=== PATIENT | female | born 1985 | race American Indian/Alaskan Native ===

== ENCOUNTER 2016-11-11 00:07 | Inpatient (IN) | payer BC, MEDICAID ==
[2016-11-11] MEDS ORDERED: METHERGINE IM ONE ×2 (00:21→02:34)
[2016-11-11] MEDS ORDERED: ZOFRAN IV PRN (00:49)
[2016-11-11] MEDS ORDERED: TYLENOL PO PRN (00:49)
[2016-11-11] MEDS ORDERED: BENADRYL PO PRN (00:49)
[2016-11-11] MEDS ORDERED: MILK OF MAGNESIA PO PRN (00:49)
[2016-11-11] MEDS ORDERED: PHENERGAN PO PRN (00:49)
[2016-11-11] MEDS ORDERED: TUCKS PAD TP PRN (00:49)
[2016-11-11] MEDS ORDERED: PHENERGAN PR PRN (00:49)
[2016-11-11] MEDS ORDERED: LANSINOH TP PRN (00:49)
[2016-11-11] MEDS ORDERED: DULCOLAX PR PRN (00:49)
--- NOTE | 2016-11-11 00:59 | History and Physical Report ---
History of Present Illness Date of examination: 11/11/16 Date of admission: 11/11/16 00:19 Chief complaint: I'm in labor History of present illness: Patient is a who presents to L&D via ambulance in active labor. patient was full and pushing upon presentation. She was scheduled to go to [facility] for delivery and states that she sees Dr. Pacheco but no records were found at [facility]. Past History Past Medical History: no pertinent history Past Surgical History: no surgical history Social history: - Obstetrical History Expected Date of Delivery: 11/07/16 Actual Gestation: 40 Week(s) 4 Day(s) : 6 Para: 4 Number of Living Children: 4 Medications and Allergies Allergies Allergy/AdvReac Type Severity Reaction Status Date / Time Penicillins Allergy Rash Verified 02/15/14 10:32 Active Meds: Active Medications Acetaminophen (Tylenol) 650 mg PO Q4H PRN PRN Reason: Pain MILD(1-3)/Fever >100.5/LAMB Acetaminophen/Hydrocodone Bitart ([place] 5/325) 2 each PO Q6H PRN PRN Reason: Pain, Moderate (4-6) Bisacodyl (Dulcolax) 10 mg IA BID PRN PRN Reason: Constipation Diphenhydramine HCl (Benadryl) 25 mg PO Q6H PRN PRN Reason: Itching Docusate Sodium (Colace) 100 mg PO BID VANESSA Ibuprofen (Motrin) 600 mg PO Q6H VANESSA Magnesium Hydroxide (Milk Of Magnesia) 30 ml PO HS PRN PRN Reason: Constipation Multi-Ingredient Ointment (Lansinoh) 1 applic TP PRN PRN PRN Reason: Sore Nipples Multivitamins/Iron/Calcium ( Vitamin) 1 each PO QDAY VANESSA Ondansetron HCl (Zofran) 4 mg IV Q8H PRN PRN Reason: Nausea And Vomiting Promethazine HCl (Phenergan) 25 mg IA Q6H PRN PRN Reason: Nausea And Vomiting Promethazine HCl (Phenergan) 25 mg PO Q6H PRN PRN Reason: Nausea And Vomiting Sodium Chloride (Sodium Chloride Flush Syringe 10 Ml) 10 ml IV PRN NR Witch Vikki/Glycerin (Tucks Pad) 1 each TP PRN PRN PRN Reason: Hemorrhoid/cleansing/soothing Review of Systems All systems: negative Genitourinary: leakage of fluid, contractions - Vital Signs Vital signs: Vital Signs Pulse BP 89 130/60 11/11/16 00:18 11/11/16 00:18 Temp Pulse Resp BP Pulse Ox 97.4 F L 99 H 18 112/62 100 11/11/16 00:20 11/11/16 00:51 11/11/16 00:20 11/11/16 00:38 11/11/16 00:51 - Physical Exam Breasts: Cardiovascular: Regular rate, Normal S1, Normal S2 Lungs: Positive: Clear to auscultation, Normal air movement Abdomen: Positive: normal appearance, soft, normal bowel sounds. Negative: distention, tenderness Vulva: both: normal Vagina: Positive: normal moisture. Negative: discharge Cervix: Negative: lesion, discharge Uterus: Positive: normal size, normal contour Adnexa: both: normal Anus/Rectum: Positive: normal perianal skin, heme negative. Negative: rectal mass, hemorrhoids Extremities: Deep Tendon Reflex Grade: Normal +2 - Obstetrical Cervical Dilatation: 10 Cervical Effacement Percentage: 100 station: +2 Uterine Contraction Frequency (min): 3 Uterine Contraction Pattern: Regular Uterine Contraction Intensity: Strong/Firm Results All other labs normal. Assessment and Plan IUP at 40.4 in active labor. Admit and anticipate
[2016-11-11] MEDS ORDERED: SODIUM CHLORIDE FLUSH SYRINGE 10 ML IV PRN (01:00)
--- NOTE | 2016-11-11 01:04 | Procedure Note ---
OB Delivery Note - Delivery Date of Delivery: 11/11/16 Surgeon: MAHSA BERNAL Estimated blood loss: 300cc - Vaginal Delivery presentation: vertex Delivery position: OA Intrapartum events: precipitous labor- <3hr Delivery monitor: external FHT, external uterine Route of delivery: Delivery placenta: spontaneous Delivery cord: 3 umbilical vessels Episiotomy: none Delivery laceration: none Anesthesia: none Delivery comments: Viable male delivered precipitously over intact perineum. Cord clamped and cut. Placenta delivered spontaneously and intact with 3c. No lacerations. Patient tolerated procedure well. - Infant A at 1 minute: 8 at 5 minutes: 8 Gender: Male (7 pounds 6 ounces)
[2016-11-11] MEDS: MOTRIN PO SCH ×4 (01:36→23:54)
[2016-11-11] MEDS ORDERED: PITOCin/NS 20 UNIT/1000ML DRIP 20 UNITS/1,000 ML BAG IV SCH ×2 (02:00→02:51)
[2016-11-11 02:17] LABS: Hematocrit 33.1 % (30.3-42.9); Hemoglobin 10.9 gm/dl (10.1-14.3)
[2016-11-11] MEDS ORDERED: PITOCin/NS 30 UNIT/500ML 30 UNITS/500 ML BAG IV SCH (02:51)
[2016-11-11] MEDS ORDERED: LACTATED RINGERS 1,000 ML IV SCH (02:51)
[2016-11-11] MEDS ORDERED: BRETHINE SUB-Q PRN (02:51)
[2016-11-11] MEDS ORDERED: ePHEDrine SULFATE IV PRN (02:51)
[2016-11-11] MEDS ORDERED: XYLOCAINE 2% INFILTRATI ONE (02:51)
[2016-11-11] MEDS ORDERED: MINERAL OIL PO PRN (02:51)
[2016-11-11] MEDS ORDERED: BRETHINE IVP PRN (02:51)
[2016-11-11] MEDS ORDERED: PITOCin/NS 20 UNIT/1000ML DRIP 20,000 MILLIUNITS/1,000 ML BAG IV ONE (03:51)
[2016-11-11 06:31] LABS: Hematocrit 28.8 % (30.3-42.9); Hemoglobin 9.6 gm/dl (10.1-14.3); Mean Corpuscular HGB Conc 33 % (30-34); Mean Corpuscular Hemoglobin 28 pg (28-32); Mean Corpuscular Volume 84 fl (79-97); Platelet Count 177 K/mm3 (140-440); Red Blood Count 3.41 M/mm3 (3.65-5.03); Red Cell Distribution Width 18.5 % (13.2-15.2); White Blood Count 10.9 K/mm3 (4.5-11.0)
[2016-11-11] MEDS: COLACE PO SCH ×2 (18:49→21:41)
[2016-11-11] MEDS: NORCO 5/325 PO PRN ×2 (18:50→23:54)
[2016-11-11] MEDS: PRENATAL VITAMIN PO SCH (18:50)
[2016-11-12] MEDS: MOTRIN PO SCH ×4 (06:02→23:10)
[2016-11-12] MEDS: COLACE PO SCH ×2 (11:57→21:47)
[2016-11-12] MEDS: PRENATAL VITAMIN PO SCH (11:57)
[2016-11-12 18:59] LABS: HIV-1 RNA QN PCR <1.30 Log cps/mL (<1.30); HIV-1 RNA QN PCR <20 copies/mL (<20)
--- NOTE | 2016-11-13 00:14 | Progress Note ---
Assessment and Plan PPD 1 s/p precipitous . Doing well. Plan for discharge on 11/13 Subjective - Subjective Date of service: 11/13/16 Interval history: Patient is a who presents to L&D via ambulance in active labor. patient was full and pushing upon presentation. She was scheduled to go to [facility] for delivery and states that she sees Dr. Pacheco but no records were found at [facility]. Patient reports: appetite normal, voiding normally, pain well controlled, ambulating normally Mccleary: doing well Objective - Vital Signs Latest vital signs: Vital Signs Temp Pulse Resp BP 11/12/16 16:19 98.3 F 65 18 127/75 11/12/16 08:26 97.9 F 65 18 124/74 11/12/16 00:36 98.5 F 66 20 108/55 Intake and Output 11/12/16 11/12/16 11/13/16 14:59 22:59 06:59 Intake Total 840 Balance 840 Intake: Oral 840 Other: Total, Intake Amount 480 # Voids Void 1 - Exam Breasts: Present: deferred Cardiovascular: Present: Regular rate, Normal S1, Normal S2 Lungs: Present: Clear to auscultation, Normal air movement Abdomen: Present: normal appearance, soft, normal bowel sounds Uterus: Present: normal, firm, fundal height below umbilicus Extremities: Present: normal
--- NOTE | 2016-11-13 00:16 | Discharge Summary ---
Providers - Providers Date of Admission: 11/11/16 00:19 Date of discharge: 11/13/16 Attending physician: MAHSA BERNAL Primary care physician: MAHSA BERNAL Hospitalization Reason for admission: active labor Delivery: complications: none Discharge diagnosis: IUP at term delivered [place] baby: male Hospital course: unremarkable Condition at discharge: Good Disposition: DC-01 TO HOME OR SELFCARE Plan - Discharge Medications Prescriptions: HYDROcodone/APAP 5-325 [[place] 5/325] 1 each PO Q4HR PRN #20 tablet PRN Reason: Pain - Provider Discharge Summary Activity: routine, no sex for 6 weeks, no heavy lifting 4 weeks, no strenuous exercise Diet: routine Instructions: routine Additional instructions: [] Smoking cessation referral if applicable(refer to patient education folder for contact #) [] Refer to [facility] Booklet Call your doctor immediately for: * Fever > 100.5 * Heavy vaginal bleeding ( >1 pad per hour) * Severe persistent headache * Shortness of breath * Reddened, hot, painful area to leg or breast * Drainage or odor from incision. * Keep incision clean and dry at all times and follow doctor's instructions regarding bathing/showering - Follow up plan Follow up: MAHSA BERNAL MD [Primary Care Provider] - (Dr. Pacheco)
[2016-11-13] MEDS: MOTRIN PO SCH (05:59)
[2016-11-13 13:43] VITALS: BP 127/75
== END 2016-11-13 12:30 | disposition home or self-care (01) | DRG 775 ==
LOC: TRG 00:07 → LD 00:19 → OB 03:04
PROVIDERS: ADMIT Obstetrics & Gynecology; ATTEND Obstetrics & Gynecology
PROC: 10E0XZZ Delivery of Products of Conception, External Approach (ICD-10-PCS; principal; 2016-11-11)
DX: O62.3 Precipitate labor (principal); Z3A.40 40 weeks gestation of pregnancy; Z37.0 Single live birth; Z88.0 Allergy status to penicillin
CPT/HCPCS: 36415; 85014; 85018; 85027; 86850; 86900; 86901; 87536; 99211; A6250; G0463; J2210; J2590

== ENCOUNTER 2018-09-07 10:07 | Emergency (ER) | payer BC, MEDICAID ==
[2018-09-07] MEDS ORDERED: FUL-GLO OP ONE (13:42)
[2018-09-07] MEDS ORDERED: IBUPROFEN PO ONE (13:43)
[2018-09-07] MEDS ORDERED: BSS OU ONE (13:43)
--- NOTE | 2018-09-07 14:56 | Emergency Department Report ---
ED Eye Problem HPI - General Chief complaint: Eye Problems Stated complaint: R EYE PAIN/REDNESS/DRAINAGE Time Seen by Provider: 09/07/18 13:41 Source: patient Mode of arrival: Ambulatory Limitations: No Limitations - History of Present Illness Initial comments: 33-year-old -[place] female presents to the emergency room for right eye pain after her child fracture in her eye yesterday. Patient reports she does not wear contacts. Patient complains of pain irritation light sensitivity. Patient has no past medical history has a allergy to penicillin. chief complaint: eye pain, eye injury Onset/Timin -: days(s) Onset Description: sudden Location: right eye Place: home If Injury: direct trauma Eye Symptoms: redness, pain, photophobia Severity: moderate Severity scale (0 -10): 8 If Pain, Quality: sharp, burning, throbbing Consistency: constant Associated Symptoms: none Treatments Prior to Arrival: none - Related Data Patient Tetanus UTD: No Previous Rx's Medication Instructions Recorded Last Taken Type Erythromycin [Erythromycin Ophth 10 applic OP QID 10 Days #1 gram 09/07/18 Unknown Rx Oint] HYDROcodone/APAP 5-325 [[place] 1 each PO Q4HR PRN #10 tablet 09/07/18 Unknown Rx 5-325 mg TAB] Ibuprofen [Motrin 800 MG tab] 800 mg PO Q8HR PRN #30 tablet 09/07/18 Unknown Rx Allergies Allergy/AdvReac Type Severity Reaction Status Date / Time Penicillins Allergy Rash Verified 02/15/14 10:32 ED Review of Systems ROS: Stated complaint: R EYE PAIN/REDNESS/DRAINAGE Other details as noted in HPI Comment: All other systems reviewed and negative Eyes: eye pain ED Past Medical Hx - Past Medical History Previous Medical History?: Yes Hx Hypertension: No Hx Congestive Heart Failure: No Hx Diabetes: No Hx Deep Vein Thrombosis: No Hx Renal Disease: No Hx Sickle Cell Disease: No Hx Seizures: No Hx Asthma: No Hx COPD: No - Surgical History Past Surgical History?: Yes Additional Surgical History: carpal tunnel, right. partial thyroidectomy - Social History Smoking Status: Never Smoker Substance Use Type: None - Medications Home Medications: Home Medications Medication Instructions Recorded Confirmed Last Taken Type Erythromycin [Erythromycin Ophth 10 applic OP QID 10 Days #1 gram 09/07/18 Unknown Rx Oint] HYDROcodone/APAP 5-325 [[place] 1 each PO Q4HR PRN #10 tablet 09/07/18 Unknown Rx 5-325 mg TAB] Ibuprofen [Motrin 800 MG tab] 800 mg PO Q8HR PRN #30 tablet 09/07/18 Unknown Rx ED Physical Exam - General Limitations: No Limitations General appearance: alert, in no apparent distress - Head Head exam: Present: atraumatic, normocephalic - Expanded Eye Exam Expanded Eyelids: Normal Inspection: Right Pupils: Regular, Round: Right Sclera/Conjunctival: Normal Inspection: Right Visual acuity (R) = 20/: 30 Visual acuity (L) = 20/: 30 IOP measured with: other (fluorescein uptake to the right eye between 11 and 7 o'clock) - ENT ENT exam: Present: mucous membranes moist - Neck Neck exam: Present: normal inspection, full ROM - Neurological Exam Neurological exam: Present: alert, oriented X3 - Psychiatric Psychiatric exam: Present: normal affect, normal mood - Skin Skin exam: Present: warm, dry, intact, normal color. Absent: rash ED Course Vital Signs 09/07/18 10:20 Temperature 97.7 F Pulse Rate 76 Respiratory 16 Rate Blood Pressure 130/73 O2 Sat by Pulse 99 Oximetry ED Medical Decision Making - Medical Decision Making 33-year-old female comes in for right eye injury after child poked her in her eye. Fluorescein exam shows the patient has a linear vertical abrasion to her right cornea. Patient will be placed on erythromycin ointment ophthalmic. Also placed on [place] 5/325 and ibuprofen. Referral to several ophthalmologists with instructions that it is very important for her to follow up. Patient verbalized understanding Critical care attestation.: If time is entered above; I have spent that time in minutes in the direct care of this critically ill patient, excluding procedure time. ED Disposition Clinical Impression: Corneal abrasion, right Qualifiers: Encounter type: initial encounter Qualified Code(s): S05.01XA - Injury of conjunctiva and corneal abrasion without foreign body, right eye, initial encounter Disposition: TO HOME OR SELFCARE Is pt being admited?: No Does the pt Need Aspirin: No Condition: Stable Instructions: Corneal Abrasion (ED) Additional Instructions: Please use antibiotic ointment to right eye as prescribed. Take pain medication as needed. Do not operate heavy machinery while taking narcotic. It is very very importantly to follow up with an souvenir street vendor in the next 2-3 days. If you do not follow up with an souvenir street vendor states that she'll help the risks such as vision loss worsening of infection. I have listed several below for your convenience. Prescriptions: Erythromycin [Erythromycin Ophth Oint] 10 applic OP QID 10 Days #1 gram Ibuprofen [Motrin 800 MG tab] 800 mg PO Q8HR PRN #30 tablet PRN Reason: Pain , Severe (7-10) HYDROcodone/APAP 5-325 [[place] 5-325 mg TAB] 1 each PO Q4HR PRN #10 tablet PRN Reason: Pain Referrals: IGLESIA ROBERT JR, MD [Primary Care Provider] - 3-5 Days BOBBI LEON MD [Staff Physician] - 3-5 Days [facility] [Provider Group] - 3-5 Days [facility] [Provider Group] - 3-5 Days Forms: Work/School Release Form(ED), Accompanied Note
[2018-09-07 15:06] VITALS: BP 128/71
== END 2018-09-07 15:05 | disposition home or self-care (01) ==
LOC: ED 10:07
DX: S05.01XA Injury of conjunctiva and corneal abrasion without foreign body, right eye, initial encounter (principal); E89.0 Postprocedural hypothyroidism; Z88.0 Allergy status to penicillin; Z79.1 Long term (current) use of non-steroidal anti-inflammatories (NSAID); X58.XXXA Exposure to other specified factors, initial encounter; Y93.89 Activity, other specified; Y92.098 Other place in other non-institutional residence as the place of occurrence of the external cause; Y99.8 Other external cause status
CPT/HCPCS: 99283

== ENCOUNTER 2019-05-04 21:13 | Emergency (ER) | payer BC, MEDICAID ==
[2019-05-04] MEDS ORDERED: traMADol 50 MG TAB PO ONE (22:55)
--- NOTE | 2019-05-04 23:36 | XRay Report ---
RIGHT FOOT 3 VIEWS INDICATION / CLINICAL INFORMATION: Right foot pain and swelling after fall. COMPARISON: None available. FINDINGS: BONES and JOINT(S): No acute fracture or subluxation. No significant arthritis. SOFT TISSUES: No significant abnormality. ADDITIONAL FINDINGS: None. IMPRESSION: No significant abnormality of the right foot. Signer Name: Suresh Pete MD Signed: 05/04/2019 11:32 PM Workstation Name: [id number]
--- NOTE | 2019-05-04 23:36 | Emergency Department Report ---
ED Lower Extremity HPI - General Chief Complaint: Extremity Injury, Lower Stated Complaint: RIGHT FOOT PAIN Time Seen by Provider: 05/04/19 22:53 Source: patient Mode of arrival: Wheelchair Limitations: Physical Limitation - History of Present Illness Initial Comments: Ms. Rodriguez is a 34-year-old -British female who presents for right dorsal foot pain. States she was chasing her small toddler child around the house and twisted her foot. Now with pain and swelling dorsal foot. Incident happened approximately 5 hours ago. Pain described as 6/10 aching sharp. There is no erythema, swelling, deformity,. Patient denies numbness or tingling. Pain is exacerbated by weight bearing. Pain is relieved by nothing tried. MD Complaint: foot injury Onset/Timin -: hour(s) Injury: Foot: Right Type of Injury: hyperextension Place: home Severity: moderate Severity scale (0 -10): 5 Improves With: nothing Worsens With: weight bearing, movement, palpation Context: running Associated Symptoms: swelling, tingling, able to partially bear weight - Related Data Previous Rx's Medication Instructions Recorded Last Taken Type Erythromycin [Erythromycin Ophth 10 applic OP QID 10 Days #1 gram 09/07/18 Unknown Rx Oint] HYDROcodone/APAP 5-325 [[place] 1 each PO Q4HR PRN #10 tablet 09/07/18 Unknown Rx 5-325 mg TAB] Ibuprofen [Motrin 800 MG tab] 800 mg PO Q8HR PRN #30 tablet 09/07/18 Unknown Rx Naproxen 500 mg PO BID PRN #30 tablet 05/04/19 Unknown Rx Allergies Allergy/AdvReac Type Severity Reaction Status Date / Time Penicillins Allergy Rash Verified 02/15/14 10:32 ED Review of Systems ROS: Stated complaint: RIGHT FOOT PAIN Other details as noted in HPI Constitutional: denies: chills, fever Eyes: denies: eye pain, eye discharge, vision change ENT: denies: ear pain, throat pain Respiratory: denies: cough, shortness of breath, wheezing Cardiovascular: denies: chest pain, palpitations Endocrine: no symptoms reported Gastrointestinal: denies: abdominal pain, nausea, diarrhea Genitourinary: denies: urgency, dysuria, discharge Musculoskeletal: other (foot pain ) Skin: denies: rash, lesions Neurological: denies: headache, weakness, paresthesias Psychiatric: denies: anxiety, depression Hematological/Lymphatic: denies: easy bleeding, easy bruising ED Past Medical Hx - Past Medical History Hx Hypertension: No Hx Congestive Heart Failure: No Hx Diabetes: No Hx Deep Vein Thrombosis: No Hx Renal Disease: No Hx Sickle Cell Disease: No Hx Seizures: No Hx Asthma: No Hx COPD: No Additional medical history: thyroid - Surgical History Past Surgical History?: Yes Additional Surgical History: carpal tunnel, right. partial thyroidectomy - Social History Smoking Status: Never Smoker Substance Use Type: None - Medications Home Medications: Home Medications Medication Instructions Recorded Confirmed Last Taken Type Erythromycin [Erythromycin Ophth 10 applic OP QID 10 Days #1 gram 09/07/18 Unknown Rx Oint] HYDROcodone/APAP 5-325 [[place] 1 each PO Q4HR PRN #10 tablet 09/07/18 Unknown Rx 5-325 mg TAB] Ibuprofen [Motrin 800 MG tab] 800 mg PO Q8HR PRN #30 tablet 09/07/18 Unknown Rx Naproxen 500 mg PO BID PRN #30 tablet 05/04/19 Unknown Rx ED Physical Exam - General Limitations: Physical Limitation General appearance: alert, in no apparent distress - Head Head exam: Present: atraumatic, normocephalic - Eye Eye exam: Present: normal appearance - ENT ENT exam: Present: mucous membranes moist - Neck Neck exam: Present: normal inspection, full ROM. Absent: tenderness - Respiratory Respiratory exam: Present: normal lung sounds bilaterally. Absent: respiratory distress - Cardiovascular Cardiovascular Exam: Present: regular rate, normal rhythm, normal heart sounds. Absent: systolic murmur, diastolic murmur, rubs, gallop - GI/Abdominal GI/Abdominal exam: Present: soft, normal bowel sounds. Absent: tenderness - Extremities Exam Extremities exam: Present: tenderness (right dorsal foot ) - Expanded Lower Extremity Exam Right Foot/Toe exam: Present: full ROM, tenderness, swelling. Absent: abrasion, laceration, ecchymosis, deformity, crepidus, dislocation, erythema, amputation, calcaneal tenderness, tenderness at base of 5th metatarsal, nail avulsion, subungual hematoma Neuro vascular tendon exam: Absent: pulse deficit, motor deficit, sensory deficit, tendon deficit, extremity cold to touch, pallor Gait: Positive: observed and limited by pain - Back Exam Back exam: Present: normal inspection, full ROM. Absent: tenderness, vertebral tenderness - Neurological Exam Neurological exam: Present: alert, oriented X3, CN II-XII intact, reflexes normal. Absent: motor sensory deficit - Expanded Neurological Exam Expanded Patient oriented to: Present: person, place, time Motor strength exam: RUE: 5, LUE: 5, RLE: 5, LLE: 5 Best Eye Response (Juan): (4) open spontaneously Best Motor Response (Juan): (6) obeys commands Best Verbal Response ([place]): (5) oriented Juan Total: 15 - Psychiatric Psychiatric exam: Present: normal affect, normal mood - Skin Skin exam: Present: warm, dry, intact, normal color. Absent: rash ED Course Vital Signs 05/04/19 21:21 Temperature 98.3 F Pulse Rate 70 Respiratory 18 Rate Blood Pressure 133/78 O2 Sat by Pulse 99 Oximetry ED Lower Extremity MDM - Medical Decision Making Foot contusion right dorsal foot, xray neg for fracture no soft tissue abnormality, plan: orthoshoe, nsaids prn, rice therapy follow up with pcp in 2- 3 days. Critical care attestation.: If time is entered above; I have spent that time in minutes in the direct care of this critically ill patient, excluding procedure time. ED Disposition Clinical Impression: Sprain of foot, right Qualifiers: Encounter type: initial encounter Qualified Code(s): S93.601A - Unspecified sprain of right foot, initial encounter Disposition: TO HOME OR SELFCARE Is pt being admited?: No Does the pt Need Aspirin: No Condition: Stable Instructions: Foot Sprain (ED), RICE Therapy (ED) Prescriptions: Naproxen 500 mg PO BID PRN #30 tablet PRN Reason: Pain , Severe (7-10) Referrals: STEPHANIE OWENS MD [Staff Physician] - 3-5 Days Forms: Work/School Release Form(ED) Time of Disposition: 23:40
[2019-05-04 23:46] VITALS: BP 124/74
== END 2019-05-04 23:46 | disposition home or self-care (01) ==
LOC: ED 21:13
DX: S93.601A Unspecified sprain of right foot, initial encounter (principal); Z79.899 Other long term (current) drug therapy; Z88.0 Allergy status to penicillin; X50.0XXA Overexertion from strenuous movement or load, initial encounter; Y93.89 Activity, other specified; Y92.89 Other specified places as the place of occurrence of the external cause; Y99.8 Other external cause status

== ENCOUNTER 2019-05-29 22:53 | Emergency (ER) | payer BC, MEDICAID ==
[2019-05-29 23:14] VITALS: BP 138/70
--- NOTE | 2019-05-30 01:31 | XRay Report ---
RIGHT ANKLE, 3 VIEWS INDICATION / CLINICAL INFORMATION: pain and swelling. COMPARISON: None available. FINDINGS: No fracture or dislocation is identified. Soft tissues are normal. IMPRESSION: Negative exam. Signer Name: Dulce Bradshaw MD Signed: 05/30/2019 1:26 AM Workstation Name: [id number]
== END 2019-05-30 08:00 | disposition left against medical advice (07) ==
LOC: ED 22:53
DX: M79.604 Pain in right leg (principal); Z53.21 Procedure and treatment not carried out due to patient leaving prior to being seen by health care provider

== ENCOUNTER 2019-08-23 00:16 | Emergency (ER) | payer BC, MEDICAID ==
[2019-08-23 00:26] VITALS: BP 122/78
[2019-08-23 01:44] LABS: Basophils # (Auto) 0.1 K/mm3 (0.0-0.1); Basophils % (Auto) 0.9 % (0.0-1.8); Eosinophils # (Auto) 0.1 K/mm3 (0.0-0.4); Hemoglobin 10.6 gm/dl (10.1-14.3); Lymphocytes # (Auto) 3.2 K/mm3 (1.2-5.4); Lymphocytes % (Auto) 48.6 % (13.4-35.0); Mean Corpuscular HGB Conc 33 % (30-34); Mean Corpuscular Volume 93 fl (79-97); Monocytes # (Auto) 0.6 K/mm3 (0.0-0.8); Monocytes % (Auto) 9.6 % (0.0-7.3); Platelet Count 230 K/mm3 (140-440); Red Blood Count 3.43 M/mm3 (3.65-5.03)
--- NOTE | 2019-08-23 03:37 | Emergency Department Report ---
ED Female HPI - General Chief complaint: Vaginal Bleeding Stated complaint: VAGINAL BLEEDING Time Seen by Provider: 08/23/19 02:14 Source: patient Mode of arrival: Ambulatory Limitations: No Limitations - History of Present Illness Initial comments: 34-year-old female presents emergency department complaining of a one-month history of vaginal bleeding and pelvic cramping that has been episodic in nature.. States that she is unsure of what gave rise to to the issue but has multiple days of heavy bleeding followed by days of no bleeding which is c ramping or spotting. Reports no fever, chills, sweats no chest pain no palpitations no shortness of breath no lightheadedness no dizziness no tinnitus no easy bruising. She does have a past medical history of thyroid disorder but states that this was last checked in May and is under control. Has a follow- up with her [employer] [employer] scheduled today at 11:15 AM MD Complaint: vaginal bleeding Location: LLQ Radiation: non-radiating Severity: mild Consistency: intermittent Improves with: none Worsens with: none Are you Now?: No Associated Symptoms: vaginal bleeding - Related Data Previous Rx's Medication Instructions Recorded Last Taken Type Erythromycin [Erythromycin Ophth 10 applic OP QID 10 Days #1 gram 09/07/18 Unknown Rx Oint] HYDROcodone/APAP 5-325 [[place] 1 each PO Q4HR PRN #10 tablet 09/07/18 Unknown Rx 5-325 mg TAB] Ibuprofen [Motrin 800 MG tab] 800 mg PO Q8HR PRN #30 tablet 09/07/18 Unknown Rx Naproxen 500 mg PO BID PRN #30 tablet 05/04/19 Unknown Rx Allergies Allergy/AdvReac Type Severity Reaction Status Date / Time Penicillins Allergy Rash Verified 02/15/14 10:32 ED Review of Systems ROS: Stated complaint: VAGINAL BLEEDING Other details as noted in HPI Comment: All other systems reviewed and negative ED Past Medical Hx - Past Medical History Previous Medical History?: Yes Hx Hypertension: No Hx Congestive Heart Failure: No Hx Diabetes: No Hx Deep Vein Thrombosis: No Hx Renal Disease: No Hx Sickle Cell Disease: No Hx Seizures: No Hx Asthma: No Hx COPD: No Additional medical history: thyroid - Surgical History Past Surgical History?: Yes Additional Surgical History: carpal tunnel, right. partial thyroidectomy - Social History Smoking Status: Never Smoker Substance Use Type: None - Medications Home Medications: Home Medications Medication Instructions Recorded Confirmed Last Taken Type Erythromycin [Erythromycin Ophth 10 applic OP QID 10 Days #1 gram 09/07/18 Unknown Rx Oint] HYDROcodone/APAP 5-325 [[place] 1 each PO Q4HR PRN #10 tablet 09/07/18 Unknown Rx 5-325 mg TAB] Ibuprofen [Motrin 800 MG tab] 800 mg PO Q8HR PRN #30 tablet 09/07/18 Unknown Rx Naproxen 500 mg PO BID PRN #30 tablet 05/04/19 Unknown Rx ED Physical Exam - General Limitations: No Limitations General appearance: alert, in no apparent distress - Head Head exam: Present: atraumatic, normocephalic - Eye Eye exam: Present: normal appearance - ENT ENT exam: Present: mucous membranes moist - Neck Neck exam: Present: normal inspection - Respiratory Respiratory exam: Present: normal lung sounds bilaterally. Absent: respiratory distress - Cardiovascular Cardiovascular Exam: Present: regular rate, normal rhythm. Absent: systolic murmur, diastolic murmur, rubs, gallop - GI/Abdominal GI/Abdominal exam: Present: soft, normal bowel sounds. Absent: tenderness, guarding, hypoactive bowel sounds, organomegaly, mass - Extremities Exam Extremities exam: Present: normal inspection - Back Exam Back exam: Present: normal inspection - Neurological Exam Neurological exam: Present: alert, oriented X3 - Psychiatric Psychiatric exam: Present: normal affect, normal mood - Skin Skin exam: Present: warm, dry, intact, normal color. Absent: rash ED Course Vital Signs 08/23/19 00:25 Temperature 98.6 F Pulse Rate 70 Respiratory 16 Rate Blood Pressure 122/78 O2 Sat by Pulse 99 Oximetry ED Medical Decision Making - Lab Data Result diagrams: 08/23/19 00:50 - Medical Decision Making 34-year-old female with vaginal bleeding for reported month off and on. Hemoglobin is currently 10.6 and she is asymptomatic at this present time. An appointment with your [employer] [employer] today at 1115 should be safe for follow-up with a specialist for definitive management and treatment options. Critical care attestation.: If time is entered above; I have spent that time in minutes in the direct care of this critically ill patient, excluding procedure time. ED Disposition Clinical Impression: Vaginal bleeding Disposition: - TO HOME OR SELFCARE Is pt being admited?: No Does the pt Need Aspirin: No Condition: Stable Instructions: Menorrhagia (ED) Additional Instructions: Hemoglobin 10.6 with normal vital signs please be sure of to keep your appointment today with your [facility] at 1015 as we discussed Referrals: PRIMARY CARE, [Primary Care Provider] - 3-5 Days
== END 2019-08-23 04:15 | disposition home or self-care (01) ==
LOC: ED 00:16
DX: N93.9 Abnormal uterine and vaginal bleeding, unspecified (principal); R10.30 Lower abdominal pain, unspecified; Z98.890 Other specified postprocedural states; Z79.1 Long term (current) use of non-steroidal anti-inflammatories (NSAID); Z79.2 Long term (current) use of antibiotics; Z79.899 Other long term (current) drug therapy; Z88.0 Allergy status to penicillin
CPT/HCPCS: 36415; 84703; 85025

== ENCOUNTER 2019-09-27 17:10 | Emergency (ER) | payer BC, MEDICAID ==
[2019-09-27 17:41] VITALS: BP 113/56
--- NOTE | 2019-09-27 18:13 | XRay Report ---
RIGHT ELBOW 3 VIEWS INDICATION: Right elbow pain after fall earlier today. COMPARISON: No relevant prior imaging study available. FINDINGS: While no acute, displaced fracture is seen, there is a right elbow effusion. No dislocation. No forei gn bodies. IMPRESSION: 1. In the setting of recent fall, elbow effusion is likely due to hemarthrosis. This is likely due to radiographically occult fracture, possibly at the radial head neck region. CT would be useful to be tter assess for radiographically occult fracture. Signer Name: Flaco Love MD Signed: 09/27/2019 6:08 PM Workstation Name: [id number]
[2019-09-27] MEDS ORDERED: oxyCODONE /ACETAMINOPHEN 5-325MG TAB PO ONE (19:01)
--- NOTE | 2019-09-27 19:01 | Emergency Department Report ---
ED Upper Extremity Inj HPI - General Chief Complaint: Extremity Injury, Upper Stated Complaint: FELL DOWN STAIRS ON RT ARM Time Seen by Provider: 09/27/19 18:57 Source: patient Mode of arrival: Ambulatory Limitations: No Limitations - History of Present Illness Initial Comments: Patient is a 34-year-old female presents emergency room with complaints of a right arm injury that occurred just prior to arrival. She states that she fell down the last step and tripped over a tree limb and fell onto an outstretched hand and onto her right elbow. She is complaining of right hand and right elbow pain. She has discomfort with movement. She denies any prior injury to this arm. She is right-hand dominant. She denies any numbness or weakness. She denies any past medical history. She has an allergy to penicillin. - Related Data Previous Rx's Medication Instructions Recorded Last Taken Type Erythromycin [Erythromycin Ophth 10 applic OP QID 10 Days #1 gram 09/07/18 Unknown Rx Oint] HYDROcodone/APAP 5-325 [[place] 1 each PO Q4HR PRN #10 tablet 09/07/18 Unknown Rx 5-325 mg TAB] Ibuprofen [Motrin 800 MG tab] 800 mg PO Q8HR PRN #30 tablet 09/07/18 Unknown Rx Naproxen 500 mg PO BID PRN #30 tablet 05/04/19 Unknown Rx Naproxen [EC-Naprosyn] 500 mg PO BID PRN #14 tablet. 09/27/19 Unknown Rx traMADoL [Ultram 50 MG tab] 50 mg PO Q6HR PRN #12 tablet 09/27/19 Unknown Rx Allergies Allergy/AdvReac Type Severity Reaction Status Date / Time Penicillins Allergy Rash Verified 09/27/19 17:37 ED Review of Systems ROS: Stated complaint: FELL DOWN STAIRS ON RT ARM Other details as noted in HPI Comment: All other systems reviewed and negative ED Past Medical Hx - Past Medical History Hx Hypertension: No Hx Congestive Heart Failure: No Hx Diabetes: No Hx Deep Vein Thrombosis: No Hx Renal Disease: No Hx Sickle Cell Disease: No Hx Seizures: No Hx Asthma: No Hx COPD: No Additional medical history: thyroid - Surgical History Additional Surgical History: carpal tunnel, right. partial thyroidectomy - Social History Smoking Status: Never Smoker Substance Use Type: None - Medications Home Medications: Home Medications Medication Instructions Recorded Confirmed Last Taken Type Erythromycin [Erythromycin Ophth 10 applic OP QID 10 Days #1 gram 09/07/18 Unknown Rx Oint] HYDROcodone/APAP 5-325 [[place] 1 each PO Q4HR PRN #10 tablet 09/07/18 Unknown Rx 5-325 mg TAB] Ibuprofen [Motrin 800 MG tab] 800 mg PO Q8HR PRN #30 tablet 09/07/18 Unknown Rx Naproxen 500 mg PO BID PRN #30 tablet 05/04/19 Unknown Rx Naproxen [EC-Naprosyn] 500 mg PO BID PRN #14 tablet. 09/27/19 Unknown Rx traMADoL [Ultram 50 MG tab] 50 mg PO Q6HR PRN #12 tablet 09/27/19 Unknown Rx ED Physical Exam - General Limitations: No Limitations General appearance: alert, in no apparent distress - Head Head exam: Present: atraumatic, normocephalic - Eye Eye exam: Present: normal appearance - ENT ENT exam: Present: mucous membranes moist - Extremities Exam Extremities exam: Present: other (ttp to the right elbow and right palmar hand/right anterior wrist, no snuffbox ttp, FROM of the right hand, digits, and wrist, decreased ROM of the right elbow secondary to pain and edema, no obvious deformity, neurovascularly intact) - Neurological Exam Neurological exam: Present: alert, oriented X3 - Psychiatric Psychiatric exam: Present: normal affect, normal mood - Skin Skin exam: Present: warm, dry, intact ED Course Vital Signs 09/27/19 17:39 Temperature 99.1 F Pulse Rate 75 Respiratory 18 Rate Blood Pressure 113/56 O2 Sat by Pulse 100 Oximetry ED Medical Decision Making - Radiology Data Radiology results: report reviewed RIGHT HAND 3 VIEWS INDICATION / CLINICAL INFORMATION: fall onto outstreched hand, right palmar pain. COMPARISON: None available. FINDINGS: No fracture, dislocation or soft tissue swelling is seen within the right hand. Joint spaces are well preserved. There is a subtle nondisplaced lucency within the right distal radius which appears to extend into the radiocarpal joint suggestive for possible nondisplaced fracture. IMPRESSION: 1. Possible nondisplaced fracture of right distal radius. Please correlate with point tenderness. 2. No fracture of right hand Signer Name: Dionicio Suresh MD Signed: 09/27/2019 7:53 PM Workstation Name: [id number] Transcribed By: DIOGO Dictated By: Dionicio Suresh MD Electronically Authenticated By: Dionicio Suresh MD Signed Date/Time: 09/27/191952 DD/ 49 TD/TT: RIGHT ELBOW 3 VIEWS INDICATION: Right elbow pain after fall earlier today. COMPARISON: No relevant prior imaging study available. FINDINGS: While no acute, displaced fracture is seen, there is a right elbow effusion. No dislocation. No foreign bodies. IMPRESSION: 1. In the setting of recent fall, elbow effusion is likely due to hemarthrosis. This is likely due to radiographically occult fracture, possibly at the radial head neck region. CT would be useful to better assess for radiographically occult fracture. Signer Name: Flaco Love MD Signed: 09/27/2019 6:08 PM Workstation Name: [id number] Transcribed By: SW Dictated By: Flaco Love MD Electronically Authenticated By: Flaco Love MD Signed Date/Time: 09/27/191807 DD/ 05 TD/TT: - Medical Decision Making Patient is a 34-year-old female presents emergency room with complaints of a right arm injury that occurred just prior to arrival. She states that she fell down the last step and tripped over a tree limb and fell onto an outstretched hand and onto her right elbow. She is complaining of right hand and right elbow pain. She has discomfort with movement. She denies any prior injury to this arm. She is right-hand dominant. She denies any numbness or weakness. She denies any past medical history. She has an allergy to penicillin. on exam: ttp to the right elbow and right palmar hand/right anterior wrist, no snuffbox ttp, FROM of the right hand, digits, and wrist, decreased ROM of the right elbow secondary to pain and edema, no obvious deformity, neurovascularly intact. XR right hand: 1. Possible nondisplaced fracture of right distal radius. Please correlate with point tenderness. 2. No fracture of right hand. XR right elbow: 1. In the setting of recent fall, elbow effusion is likely due to hemarthrosis. This is likely due to radiographically occult fracture, possibly at the radial head neck region. CT would be useful to better assess for radiographically occult fracture. Discussed x-ray findings with patient. Patient given pain medication as she did not drive. Patient placed in long-arm splint by nurse and remained neurovascularly intact and placed in a sling. Patient referred to orthopedic, discussed with patient the importance of orthopedic follow-up, discussed strict return precautions with patient. Patient given prescription for naproxen and tramadol. Advised patient Please take medication as prescribed. Do not drive or operate machinery while taking severe pain medication. Please keep arm in splint and sling. Please follow-up with orthopedic doctor. It is very important that you follow-up. Return to emergency room for any new or worsening symptoms. - Differential Diagnosis strain, sprain, fx, dislocation Critical care attestation.: If time is entered above; I have spent that time in minutes in the direct care of this critically ill patient, excluding procedure time. ED Disposition Clinical Impression: Elbow effusion Qualifiers: Laterality: right Qualified Code(s): M25.421 - Effusion, right elbow Fracture of right elbow Qualifiers: Encounter type: initial encounter Fracture type: closed Qualified Code(s): S42.401A - Unspecified fracture of lower end of right humerus, initial encounter for closed fracture Fracture of right wrist Qualifiers: Encounter type: initial encounter Fracture type: closed Qualified Code(s): S62.101A - Fracture of unspecified carpal bone, right wrist, initial encounter for closed fracture Disposition: DC-01 TO HOME OR SELFCARE Is pt being admited?: No Does the pt Need Aspirin: No Condition: Stable Instructions: Elbow Fracture in Adults (ED), Wrist Fracture in Adults (ED) Additional Instructions: Please take medication as prescribed. Do not drive or operate machinery while taking severe pain medication. Please keep arm in splint and sling. Please follow-up with orthopedic doctor. It is very important that you follow-up. Return to emergency room for any new or worsening symptoms. Prescriptions: Naproxen [EC-Naprosyn] 500 mg PO BID PRN #14 tablet. PRN Reason: Pain, Moderate (4-6) traMADoL [Ultram 50 MG tab] 50 mg PO Q6HR PRN #12 tablet PRN Reason: Pain , Severe (7-10) Referrals: STEPHANIE OWENS MD [Staff Physician] - 3-5 Days [facility] [Provider Group] - 3-5 Days Forms: Work/School Release Form(ED) Time of Disposition: 20:15 Print Language: GREEK
--- NOTE | 2019-09-27 19:57 | XRay Report ---
RIGHT HAND 3 VIEWS INDICATION / CLINICAL INFORMATION: fall onto outstreched hand, right palmar pain. COMPARISON: None available. FINDINGS: No fracture, dislocation or soft tissue swelling is seen within the right hand. Joint spaces are well preserved. There is a subtle nondisplaced lucency within the right distal radius which appears to ex tend into the radiocarpal joint suggestive for possible nondisplaced fracture. IMPRESSION: 1. Possible nondisplaced fracture of right distal radius. Please correlate with point tenderness. 2. No fracture of right hand Signer Name: Dionicio Suresh MD Signed: 09/27/2019 7:53 PM Workstation Name: [id number]
== END 2019-09-27 21:15 | disposition home or self-care (01) ==
LOC: ED 17:10
DX: S42.401A Unspecified fracture of lower end of right humerus, initial encounter for closed fracture (principal); S62.101A Fracture of unspecified carpal bone, right wrist, initial encounter for closed fracture; Z98.890 Other specified postprocedural states; Z79.1 Long term (current) use of non-steroidal anti-inflammatories (NSAID); Z79.2 Long term (current) use of antibiotics; Z79.899 Other long term (current) drug therapy; Z88.0 Allergy status to penicillin; W10.9XXA Fall (on) (from) unspecified stairs and steps, initial encounter; Y93.89 Activity, other specified; Y92.89 Other specified places as the place of occurrence of the external cause; Y99.8 Other external cause status

== ENCOUNTER 2020-04-18 00:55 | Emergency (ER) | payer BC, MEDICAID ==
[2020-04-18] MEDS ORDERED: ONDANSETRON 4 MG ODT TAB PO ONE (01:40)
[2020-04-18] MEDS ORDERED: HYDROcodone/ACETAMINOPHEN 7.5-325MG TAB PO ONE (01:40)
[2020-04-18] MEDS ORDERED: CLINDAMYCIN 300 MG CAP PO ONE (01:40)
[2020-04-18] MEDS ORDERED: SULFAMETHOXAZOLE/TRIMETHOPRIM 800/160MG DS TAB PO ONE (01:40)
[2020-04-18] MEDS ORDERED: IBUPROFEN 600 MG TAB PO ONE (01:40)
--- NOTE | 2020-04-18 01:40 | Emergency Department Report ---
ED General Adult HPI - General Chief complaint: Skin/Abscess/Foreign Body Stated complaint: SWOLLEN RASH ON BEHIND Source: patient Mode of arrival: Ambulatory Limitations: No Limitations - History of Present Illness Initial comments: Patient is a 35-year-old -[place] female with a history of hypothyroidism who presents to the ED with complaint of acute onset persistent painful swollen nonfluctuant erythematous maculopapular rash on right gluteus for the last 3 days. Patient states that initially the rash started slowly and small with itching but subsequently got worse. Patient states that she is unable to lay down or sit down because of pain on the right gluteus. Patient states that she is unsure of the etiology of the rash and suspect that she may have been bitten by unknown insect. Patient denies fever, chills, nausea, vomiting, dizziness, syncope, chest pain, shortness of breath, numbness and tingling or weakness of lower extremities bilaterally. MD Complaint: right gluteal painful swollen -: Sudden, days(s) (3) Location: buttocks (right gluteal area) Radiation: non-radiation Severity scale (0 -10): 7 Quality: aching, sharp Consistency: constant Improves with: none Worsens with: movement Associated Symptoms: denies other symptoms, rash (Painful erythematous rash). denies: confusion, chest pain, cough, diaphoresis, fever/chills, malaise, nausea/vomiting Treatments Prior to Arrival: none - Related Data Previous Rx's Medication Instructions Recorded Last Taken Type Erythromycin [Erythromycin Ophth 10 applic OP QID 10 Days #1 gram 09/07/18 Unknown Rx Oint] HYDROcodone/APAP 5-325 [[place] 1 each PO Q4HR PRN #10 tablet 09/07/18 Unknown Rx 5-325 mg TAB] Naproxen 500 mg PO BID PRN #30 tablet 05/04/19 Unknown Rx Naproxen [EC-Naprosyn] 500 mg PO BID PRN #14 tablet. 09/27/19 Unknown Rx Clindamycin [Clindamycin CAP] 300 mg PO Q8HR #60 capsule 04/18/20 Unknown Rx Ibuprofen [Motrin 800 MG tab] 800 mg PO Q8HR PRN #30 tablet 04/18/20 Unknown Rx Ondansetron [Zofran Odt] 4 mg PO Q6HR PRN #20 tab.rapdis 04/18/20 Unknown Rx Sulfamethoxazole/Trimethoprim 1 each PO Q12H #20 tablet 04/18/20 Unknown Rx [Bactrim DS TAB] predniSONE [Deltasone] 40 mg PO QDAY #12 tab 04/18/20 Unknown Rx traMADoL [Ultram 50 MG tab] 50 mg PO Q6HR PRN #12 tablet 04/18/20 Unknown Rx Allergies Allergy/AdvReac Type Severity Reaction Status Date / Time Penicillins Allergy Rash Verified 09/27/19 17:37 ED Review of Systems ROS: Stated complaint: SWOLLEN RASH ON BEHIND Other details as noted in HPI Constitutional: denies: chills, fever Eyes: denies: eye pain, eye discharge, vision change ENT: denies: ear pain, throat pain Respiratory: denies: cough, shortness of breath, wheezing Cardiovascular: denies: chest pain, palpitations Endocrine: no symptoms reported Gastrointestinal: denies: abdominal pain, nausea, diarrhea Genitourinary: denies: urgency, dysuria, discharge Musculoskeletal: denies: back pain, joint swelling, arthralgia Skin: rash (Erythematous maculopapular nonfluctuant rash on right gluteus with severe pain and mild swelling), change in color, pruritus. denies: lesions Neurological: denies: headache, weakness, paresthesias Psychiatric: denies: anxiety, depression Hematological/Lymphatic: denies: easy bleeding, easy bruising ED Past Medical Hx - Past Medical History Previous Medical History?: Yes Hx Hypertension: No Hx Congestive Heart Failure: No Hx Diabetes: No Hx Deep Vein Thrombosis: No Hx Renal Disease: No Hx Sickle Cell Disease: No Hx Seizures: No Hx Asthma: No Hx COPD: No Additional medical history: thyroid - Surgical History Past Surgical History?: Yes Additional Surgical History: carpal tunnel, right. partial thyroidectomy - Social History Smoking Status: Never Smoker Substance Use Type: None - Medications Home Medications: Home Medications Medication Instructions Recorded Confirmed Last Taken Type Erythromycin [Erythromycin Ophth 10 applic OP QID 10 Days #1 gram 09/07/18 Unknown Rx Oint] HYDROcodone/APAP 5-325 [[place] 1 each PO Q4HR PRN #10 tablet 09/07/18 Unknown Rx 5-325 mg TAB] Naproxen 500 mg PO BID PRN #30 tablet 05/04/19 Unknown Rx Naproxen [EC-Naprosyn] 500 mg PO BID PRN #14 tablet. 09/27/19 Unknown Rx Clindamycin [Clindamycin CAP] 300 mg PO Q8HR #60 capsule 04/18/20 Unknown Rx Ibuprofen [Motrin 800 MG tab] 800 mg PO Q8HR PRN #30 tablet 04/18/20 Unknown Rx Ondansetron [Zofran Odt] 4 mg PO Q6HR PRN #20 tab.rapdis 04/18/20 Unknown Rx Sulfamethoxazole/Trimethoprim 1 each PO Q12H #20 tablet 04/18/20 Unknown Rx [Bactrim DS TAB] predniSONE [Deltasone] 40 mg PO QDAY #12 tab 04/18/20 Unknown Rx traMADoL [Ultram 50 MG tab] 50 mg PO Q6HR PRN #12 tablet 04/18/20 Unknown Rx ED Physical Exam - General Limitations: No Limitations General appearance: alert, in no apparent distress - Head Head exam: Present: atraumatic, normocephalic, normal inspection - Eye Eye exam: Present: normal appearance, PERRL, EOMI Pupils: Present: normal accommodation - ENT ENT exam: Present: normal exam, normal orophraynx, mucous membranes moist, TM's normal bilaterally, normal external ear exam - Neck Neck exam: Present: normal inspection, full ROM - Respiratory Respiratory exam: Present: normal lung sounds bilaterally. Absent: respiratory distress, wheezes, rales, rhonchi, stridor, chest wall tenderness, accessory muscle use, decreased breath sounds, prolonged expiratory - Cardiovascular Cardiovascular Exam: Present: regular rate, normal rhythm, normal heart sounds. Absent: systolic murmur, diastolic murmur, rubs, gallop - GI/Abdominal GI/Abdominal exam: Present: soft, normal bowel sounds. Absent: tenderness, guarding, rebound, hyperactive bowel sounds, organomegaly, mass, bruit - Extremities Exam Extremities exam: Present: normal inspection, full ROM, normal capillary refill - Back Exam Back exam: Present: normal inspection, full ROM. Absent: tenderness, CVA tenderness (R), CVA tenderness (L), muscle spasm, paraspinal tenderness, vertebral tenderness - Neurological Exam Neurological exam: Present: alert, oriented X3, CN II-XII intact, normal gait, reflexes normal - Psychiatric Psychiatric exam: Present: normal affect, normal mood - Skin Skin exam: Present: warm, dry, intact, rash (Erythematous maculopapular nonfluctuant tender rash on right gluteus), erythema ED Course Vital Signs 04/18/20 01:21 Temperature 98.8 F Pulse Rate 85 Respiratory 17 Rate Blood Pressure 126/71 O2 Sat by Pulse 98 Oximetry ED Medical Decision Making - Medical Decision Making This is a 35-year-old -[place] female with a history of hypothyroidism who presents to the ED with complaint of acute onset persistent painful swollen nonfluctuant erythematous maculopapular rash on right gluteus for the last 3 days. Patient states that initially the rash started slowly and small with itching but subsequently got worse. Patient states that she is unable to lay down or sit down because of pain on the right gluteus. Patient states that she is unsure of the etiology of the rash and suspect that she may have been bitten by unknown insect. In the ED, patient is alert and oriented x3 and is not in distress. Patient was treated for pain and also given initial oral antibiotics and steroid for suspected allergic reaction to insect bite. On reevaluation, patient's pain is well controlled medications. Patient will discharge home on pain medications and antibiotics and advised to follow-up with her primary care physician in 7 to 10 days for reevaluation or return to the ED immediately if symptoms get worse. - Differential Diagnosis Cellulitis; abscess; folliculitis; insect bite; allergic reaction Critical care attestation.: If time is entered above; I have spent that time in minutes in the direct care of this critically ill patient, excluding procedure time. ED Disposition Clinical Impression: Abscess of right buttock, Cellulitis of right buttock Disposition: DC-01 TO HOME OR SELFCARE Is pt being admited?: No Does the pt Need Aspirin: No Condition: Stable Instructions: Cellulitis, Adult, Cellulitis, Adult, [id number] Additional Instructions: Take medication with food, drink plenty of fluids and follow-up with your primary care physician in 7 to 10 days for reevaluation. Return to the ED immediately if symptoms get worse. Prescriptions: Sulfamethoxazole/Trimethoprim [Bactrim DS TAB] 1 each PO Q12H #20 tablet Clindamycin [Clindamycin CAP] 300 mg PO Q8HR #60 capsule predniSONE [Deltasone] 40 mg PO QDAY #12 tab Ibuprofen [Motrin 800 MG tab] 800 mg PO Q8HR PRN #30 tablet PRN Reason: Pain , Severe (7-10) traMADoL [Ultram 50 MG tab] 50 mg PO Q6HR PRN #12 tablet PRN Reason: Pain , Severe (7-10) Ondansetron [Zofran Odt] 4 mg PO Q6HR PRN #20 tab.rapdis PRN Reason: Nausea Referrals: IGLESIA ROBERT JR, MD [Primary Care Provider] - 3-5 Days Forms: Work/School Release Form(ED) Time of Disposition: 01:37 Print Language: LATVIAN
[2020-04-18] MEDS ORDERED: predniSONE 20 MG TAB PO ONE (01:41)
[2020-04-18 02:26] VITALS: BP 132/85
== END 2020-04-18 02:25 | disposition home or self-care (01) ==
LOC: ED 00:55
DX: L02.31 Cutaneous abscess of buttock (principal); L03.317 Cellulitis of buttock; Z79.899 Other long term (current) drug therapy; Z98.890 Other specified postprocedural states; Z88.0 Allergy status to penicillin
CPT/HCPCS: 99282; J7512; Q0162

== ENCOUNTER 2021-05-21 15:11 | Emergency (ER) | payer BC, MEDICAID ==
[2021-05-21] MEDS ORDERED: CLINDAMYCIN 300 MG CAP PO ONE (16:09)
[2021-05-21] MEDS ORDERED: ACETAMINOPHEN W/CODEINE 300-30 MG TAB PO ONE (16:09)
--- NOTE | 2021-05-21 16:13 | Emergency Department Report ---
ED ENT HPI - General Chief complaint: Dental/Oral Stated complaint: DENTAL PAIN Time Seen by Provider: 05/21/21 16:05 Source: patient Mode of arrival: Ambulatory Limitations: No Limitations - History of Present Illness Initial comments: 36-year-old female who is 19 weeks gestation who presents to the emergency department for evaluation of 2 to 3-day history of worsening dental pain. She states that she has a known cavity left lower tooth she was scheduled to see her dentist today but they canceled her appointment, so she decided to come to the ER because pain over the past few days has been unbearable. She denies fever, swelling. MD complaint: tooth pain -: Gradual, days(s) (2) Location: tooth # (18) Severity: severe Severity scale (0 -10): 10 Quality: aching Consistency: constant Worsens with: eating, movement Associated Symptoms: gum swelling, toothache. denies: fever, cough, pain with swallowing, sore throat - Related Data Previous Rx's Medication Instructions Recorded Last Taken Type Erythromycin [Erythromycin Ophth 10 applic OP QID 10 Days #1 gram 09/07/18 Unknown Rx Oint] HYDROcodone/APAP 5-325 [[place] 1 each PO Q4HR PRN #10 tablet 09/07/18 Unknown Rx 5-325 mg TAB] Naproxen 500 mg PO BID PRN #30 tablet 05/04/19 Unknown Rx Naproxen [EC-Naprosyn] 500 mg PO BID PRN #14 tablet. 09/27/19 Unknown Rx Clindamycin [Clindamycin CAP] 300 mg PO Q8HR #60 capsule 04/18/20 Unknown Rx Ibuprofen [Motrin 800 MG tab] 800 mg PO Q8HR PRN #30 tablet 04/18/20 Unknown Rx Ondansetron [Zofran Odt] 4 mg PO Q6HR PRN #20 tab.rapdis 04/18/20 Unknown Rx Sulfamethoxazole/Trimethoprim 1 each PO Q12H #20 tablet 04/18/20 Unknown Rx [Bactrim DS TAB] predniSONE [Deltasone] 40 mg PO QDAY #12 tab 04/18/20 Unknown Rx traMADoL [Ultram 50 MG tab] 50 mg PO Q6HR PRN #12 tablet 04/18/20 Unknown Rx Acetaminophen/Codeine [Tylenol 1 tab PO BID PRN #12 tab 05/21/21 Unknown Rx /Codeine # 3 tab] Clindamycin [Clindamycin CAP] 300 mg PO TID 7 Days #42 capsule 05/21/21 Unknown Rx Allergies Allergy/AdvReac Type Severity Reaction Status Date / Time Penicillins Allergy Rash Verified 09/27/19 17:37 ED Dental HPI - General Chief complaint: Dental/Oral Stated complaint: DENTAL PAIN Time Seen by Provider: 05/21/21 16:05 Source: patient Mode of arrival: Ambulatory Limitations: No Limitations - Related Data Previous Rx's Medication Instructions Recorded Last Taken Type Erythromycin [Erythromycin Ophth 10 applic OP QID 10 Days #1 gram 09/07/18 Unknown Rx Oint] HYDROcodone/APAP 5-325 [[place] 1 each PO Q4HR PRN #10 tablet 09/07/18 Unknown Rx 5-325 mg TAB] Naproxen 500 mg PO BID PRN #30 tablet 05/04/19 Unknown Rx Naproxen [EC-Naprosyn] 500 mg PO BID PRN #14 tablet. 09/27/19 Unknown Rx Clindamycin [Clindamycin CAP] 300 mg PO Q8HR #60 capsule 04/18/20 Unknown Rx Ibuprofen [Motrin 800 MG tab] 800 mg PO Q8HR PRN #30 tablet 04/18/20 Unknown Rx Ondansetron [Zofran Odt] 4 mg PO Q6HR PRN #20 tab.rapdis 04/18/20 Unknown Rx Sulfamethoxazole/Trimethoprim 1 each PO Q12H #20 tablet 04/18/20 Unknown Rx [Bactrim DS TAB] predniSONE [Deltasone] 40 mg PO QDAY #12 tab 04/18/20 Unknown Rx traMADoL [Ultram 50 MG tab] 50 mg PO Q6HR PRN #12 tablet 04/18/20 Unknown Rx Acetaminophen/Codeine [Tylenol 1 tab PO BID PRN #12 tab 05/21/21 Unknown Rx /Codeine # 3 tab] Clindamycin [Clindamycin CAP] 300 mg PO TID 7 Days #42 capsule 05/21/21 Unknown Rx Allergies Allergy/AdvReac Type Severity Reaction Status Date / Time Penicillins Allergy Rash Verified 09/27/19 17:37 ED Review of Systems ROS: Stated complaint: DENTAL PAIN Other details as noted in HPI Constitutional: denies: fever Eyes: denies: eye pain ENT: ear pain, dental pain. denies: throat pain, congestion Respiratory: denies: cough, shortness of breath, SOB with exertion Cardiovascular: denies: chest pain, palpitations Endocrine: no symptoms reported Gastrointestinal: denies: abdominal pain, nausea, vomiting Genitourinary: denies: urgency, dysuria Musculoskeletal: denies: back pain Skin: denies: rash, lesions Neurological: denies: headache, weakness Psychiatric: denies: anxiety Hematological/Lymphatic: denies: easy bleeding, easy bruising ED Past Medical Hx - Past Medical History Hx Hypertension: No Hx Congestive Heart Failure: No Hx Diabetes: No Hx Deep Vein Thrombosis: No Hx Renal Disease: No Hx Sickle Cell Disease: No Hx Seizures: No Hx Asthma: No Hx COPD: No Additional medical history: thyroid - Surgical History Additional Surgical History: carpal tunnel, right. partial thyroidectomy - Social History Smoking Status: Never Smoker Substance Use Type: None - Medications Home Medications: Home Medications Medication Instructions Recorded Confirmed Last Taken Type Erythromycin [Erythromycin Ophth 10 applic OP QID 10 Days #1 gram 09/07/18 Unknown Rx Oint] HYDROcodone/APAP 5-325 [[place] 1 each PO Q4HR PRN #10 tablet 09/07/18 Unknown Rx 5-325 mg TAB] Naproxen 500 mg PO BID PRN #30 tablet 05/04/19 Unknown Rx Naproxen [EC-Naprosyn] 500 mg PO BID PRN #14 tablet.dr 09/27/19 Unknown Rx Clindamycin [Clindamycin CAP] 300 mg PO Q8HR #60 capsule 04/18/20 Unknown Rx Ibuprofen [Motrin 800 MG tab] 800 mg PO Q8HR PRN #30 tablet 04/18/20 Unknown Rx Ondansetron [Zofran Odt] 4 mg PO Q6HR PRN #20 tab.rapdis 04/18/20 Unknown Rx Sulfamethoxazole/Trimethoprim 1 each PO Q12H #20 tablet 04/18/20 Unknown Rx [Bactrim DS TAB] predniSONE [Deltasone] 40 mg PO QDAY #12 tab 04/18/20 Unknown Rx traMADoL [Ultram 50 MG tab] 50 mg PO Q6HR PRN #12 tablet 04/18/20 Unknown Rx Acetaminophen/Codeine [Tylenol 1 tab PO BID PRN #12 tab 05/21/21 Unknown Rx /Codeine # 3 tab] Clindamycin [Clindamycin CAP] 300 mg PO TID 7 Days #42 capsule 05/21/21 Unknown Rx ED Physical Exam - General Limitations: No Limitations General appearance: alert, in no apparent distress - Head Head exam: Present: atraumatic, normocephalic - Expanded ENT Exam Expanded Teeth exam: Present: dental caries, dental tenderness # (18), gingival enlargement - Neck Neck exam: Present: normal inspection. Absent: lymphadenopathy - Respiratory Respiratory exam: Absent: respiratory distress - Cardiovascular Cardiovascular Exam: Present: regular rate - GI/Abdominal GI/Abdominal exam: Present: soft - Extremities Exam Extremities exam: Present: normal inspection - Back Exam Back exam: Present: normal inspection - Neurological Exam Neurological exam: Present: alert, oriented X3 - Psychiatric Psychiatric exam: Present: normal affect, normal mood - Skin Skin exam: Present: warm, dry, intact, normal color ED Course Vital Signs 05/21/21 05/21/21 15:30 17:00 Temperature 98.7 F Pulse Rate 61 75 Respiratory 18 16 Rate Blood Pressure 125/69 135/73 [Right] O2 Sat by Pulse 100 100 Oximetry ED Medical Decision Making - Medical Decision Making 36-year-old female who is 19 weeks gestation who presents to the emergency department for evaluation of 2 to 3-day history of worsening dental pain. She states that she has a known cavity left lower tooth she was scheduled to see her dentist today but they canceled her appointment, so she decided to come to the ER because pain over the past few days has been unbearable. She denies fever, swelling. Tooth #18 noted to be tender to touch with erythema and edema to the gum surrounding it. It is also noted to have dental carry with black discoloration to the top of tooth. Patient will be treated with a 7-day course of clindamycin along with Tylenol 3 twice a day only because she is for pain. She was advised to follow-up with her dentist and if unable to get area consider emergency dentist. She verbalized understanding of and agreement with plan of care. Critical care attestation.: If time is entered above; I have spent that time in minutes in the direct care of this critically ill patient, excluding procedure time. ED Disposition Clinical Impression: Pain due to dental caries Disposition: HOME / SELF CARE / HOMELESS Is pt being admited?: No Does the pt Need Aspirin: No Condition: Stable Instructions: Dental Abscess, [id number], Preventive Dental Care, Adult Additional Instructions: Only take Tylenol No. 3 1 tablet once or twice per day only. Follow-up with dentist as previously planned. Prescriptions: Clindamycin [Clindamycin CAP] 300 mg PO TID 7 Days #42 capsule Acetaminophen/Codeine [Tylenol /Codeine # 3 tab] 1 tab PO BID PRN #12 tab PRN Reason: Pain , Severe (7-10) Referrals: [facility] [Outside] - 3-5 Days [facility] [Outside] - 3-5 Days Forms: Work/School Release Form(ED) Time of Disposition: 16:13
[2021-05-21 17:11] VITALS: BP 135/73
== END 2021-05-21 17:04 | disposition home or self-care (01) ==
LOC: ED 15:11
DX: O26.892 Other specified pregnancy related conditions, second trimester (principal); K02.9 Dental caries, unspecified; Z3A.19 19 weeks gestation of pregnancy; Z88.0 Allergy status to penicillin
CPT/HCPCS: 99282